=== PATIENT | male | born 1985 | race Caucasian/White ===

== ENCOUNTER 2021-08-06 15:36 | Emergency (ER) | payer OTHER, SELFPAY ==
[2021-08-06 15:37] VITALS: BP 126/103; PULSE 114; RESP 18; TEMP 35.4; O2SAT 91; BMI 48.5
[2021-08-06 15:42] VITALS: O2SAT 92
[2021-08-06 16:46] LABS: Bedside Glucose 141 mg/dL (70-110)
[2021-08-06 17:11] LABS: Absolute Neutrophil Count 2.7 X10^3/uL (2.0-7.7); Basophil# 0.03 X10^3/uL; Basophil% 0.5 % (0-1); Eosinophils% 1.7 % (0-5); Hemoglobin 17.1 g/dL (13.0-16.5); Lymphocyte % 40.3 % (19-41); Mean Corp Hgb Conc 32.3 g/dL (32-36); Mean Corpuscular Hgb 26.6 pg (27.0-32.0); Mean Corpuscular Volume 82.6 fL (80-94); Mean Platelet Vol. 10.6 fl (6.2-12.0); Monocyte# 0.66 X10^3/uL; Monocyte% 11.1 % (0-10); NRBC Flagged by Analyzer 0 % (0-5); Neutrophil # 2.74 X10^3/uL (2.7-7.7); Neutrophil % 46.1 % (47-70); Platelet Count 268 K/mm3 (150-450); RBC Distribution Width CV 13.5 % (11.6-14.6); RBC Distribution Width SD 40.1 fl (35.1-43.9); Red Blood Count 6.42 M/mm3 (4.6-6.2)
[2021-08-06 17:23] LABS: Anion Gap 7 (5-15); BUN 8 mg/dL (7-18); BUN/Creat Ratio 9.4 RATIO (10-20); Calcium,Total 9.1 mg/dL (8.5-10.1); Chloride 105 mmol/L (98-107); Creatinine, Serum 0.85 mg/dL (0.70-1.30); EST Glomerular Filtration Rate 108 mL/min (>60); Est Glom Filt Rate - Afr Amer 131 mL/min (>60); Estimated Creatinine Clearance 131.87 ml/min; Glucose 107 mg/dL (74-106); Potassium 4.7 mmol/L (3.5-5.1); Sodium Level 138 mmol/L (136-145)
--- NOTE | 2021-08-06 17:23 | EX.ED.DYSGE1 ---
HPI History of Present Illness Chief Complaint: Fatigue Detail of Chief Complaint: Shortness of breath, subjective fever, shaking chills Informant: patient Onset/Context/Timing Onset: Days (Onset of illness 9 days ago with shaking chills starting Tuesday.) Context: Sudden Onset Timing: Continuous (Majority of his symptoms been continuous and have gotten worse since onset) and Intermittent (The shaking chills have been intermittent) Quality: Fatigue, respiratory and GI symptoms with rigors Location: Generalized systemic infection Current Severity: Moderate Maximum Severity: Severe Worsened by: Nothing Relieved by: Nothing Associated Symptoms Associated Symptoms: Per HPI Narrative Narrative: Patient is a 36-year-old unvaccinated male with no significant medical history other than obesity per patient. He presents with symptoms of started 9 days ago. He initially had fatigue. Planes of nausea and then diarrhea. He is not noted blood or mucus in his diarrhea. He does report shortness of breath and nonproductive cough. He does report rhinorrhea, congestion postnasal drainage sore throat. He denies pain with breathing. He denies vomiting. He denies decreased urine output. He denies dysuria, frequency, urgency or hematuria. He has not noted a rash. He lives alone. He is not been exposed anyone ill to his knowledge. Prior similar symptoms: No Recent Illness/Hospitalization: No PFSH PFSH Medical History no medical history no medical history Home Medications naproxen 500 mg PO BID #20 tab 11/10/14 [Rx Last Taken Unknown] dexamethasone [Decadron] 6 mg PO DAILY #7 tab 08/06/21 [Rx Last Taken Unknown] Allergy/AdvReac Type Severity Reaction Status Date / Time No Known Allergies Allergy Verified 08/06/21 15:37 Surgical History no surgical history no surgical history Social History (Updated 08/06/21 @ 17:[address] Brett Hill MD) household members: none Smoking Status: Never smoker substance use type: does not use ROS ROS ED Constitutional Constitutional ED: Reports chills, fever(s), subjective and sweats; Denies weight loss Eyes Eyes: Reports other Details: He denies photophobia, neck pain or neck stiffness ; Denies blurry vision, change in vision or diplopia ENT ENT ED: Reports rhinorrhea and sore throat; Denies ear pain Cardiovascular Cardiovascular: Denies chest pain, orthopnea, palpitations, paroxysmal nocturnal dyspnea or racing heartbeat Respiratory/Chest Respiratory/Chest: Reports cough, dyspnea and dyspnea on exertion; Denies orthopnea, paroxysmal nocturnal dyspnea or sputum Gastrointestinal Gastrointestinal: Reports diarrhea, nausea and vomiting; Denies abdominal pain, constipation or melena Genitourinary Genitourinary ED: Denies dysuria, hematuria or urinary frequency Musculoskeletal Musculoskeletal: Denies arthralgias, myalgias or neck pain Integumentary Denies Abrasions or rash Neurologic Neurologic: Reports weakness; Denies headache(s) or paresthesias Psychiatric Psychiatric: Denies anxiety or depression Endocrine Endocrinology: Denies polydipsia, polyphagia or polyuria EXAM Physical Exam Const Vital Signs: 08/06/21 15:37 08/06/21 17:28 Temperature 95.8 F L Temperature Source Temporal Pulse Rate 114 H 87 Respiratory Rate 18 20 H Blood Pressure 126/103 H 126/92 H Blood Pressure Mean 110 103 Pulse Ox 91 96 Oxygen Delivery Method Room Air Room Air Positive well nourished, well developed and obese General Appearance ED: well developed, diaphoretic, pallor and other Patient appears pale. He has delayed capillary refill. He does have a lenticular rash noted. ; Negative for cyanotic or NAD Nutritional Appearance: obese HEENT Reports TM's clear and dry mucous membranes; Denies moist mucous membranes HEENT Narrative: There is an with clear drainage. Negative for trauma or tenderness Tympanic Membrane ED: Yes TM's clear Mouth ED: Yes dry mucous membranes Mouth: dry mucous membranes Eyes PERRL and EOMs intact bilaterally General Eye ED: Negative for pale conjunctiva or scleral icterus Neck no lymphadenopathy, supple and no JVD Chest Wall inspection of chest normal and palpation of chest normal Resp normal respiratory effort and clear to auscultation bilaterally Effort and Inspection: Negative for pain with movement Cardio regular rhythm, S1 normal heart sound, S2 normal heart sound and no murmurs Rate: tachycardic GI normal to inspection, nondistended, normoactive bowel sounds, non-tender and non-distended Palpation: soft Back/Spine no CVA tenderness Cervical Spine: Negative for cervical spine tenderness Thoracic Spine / Upper Back: Negative for thoracic spinal tenderness or paraspinal muscle tenderness Extremity normal to inspection Extremity Narrative: There is no asymmetry, swelling, discoloration, leg vein distention, palpable cords or tenderness along the distribution of the deep venous system. General Extremety ED: Negative for edema or tenderness General Extremity: Negative for edema Neuro oriented x3, CN's II-XII intact bilaterally and no sensory deficits noted Sensorium / Orientation: alert Motor Exam: strength 5/5 throughout Skin No no rashes or lesions noted and no wounds Skin Narrative: Vesicular rash with delayed cap refill General Skin Exam: pallor; Negative for jaundice Lesions: No lesion noted Rashes: rashes noted Trauma: Negative for abrasion Wounds: Negative for wounds noted MDM MDM MDM Narrative Medical decision making narrative: Suspect patient has Covid. Will obtain chest x-ray, appropriate blood work to assess for anemia, renal function, hypokalemia since he has diarrhea. IV fluids at 150 was ordered because of concern for Covid. Code test is positive. Lab Data Attestation: I reviewed the patient's lab results. Labs: Laboratory Results - last 24 hr 08/06/21 08/06/21 08/06/21 16:26 16:55 16:55 WBC 6.0 RBC 6.42 H Hgb 17.1 H Hct 53.0 MCV 82.6 MCH 26.6 L MCHC 32.3 RDW Std Deviation 40.1 RDW Coeff of Brandyn 13.5 Plt Count 268 MPV 10.6 Immature Gran % (Auto) 0.300 Neut % (Auto) 46.1 L Lymph % (Auto) 40.3 Sunflower % (Auto) 11.1 H Eos % (Auto) 1.7 Baso % (Auto) 0.5 Absolute Neuts (auto) 2.7 Absolute Lymphs (auto) 2.40 Nucleated RBC % 0 Sodium 138 Potassium 4.7 Chloride 105 Carbon Dioxide 26.0 Anion Gap 7 BUN 8 Creatinine 0.85 Estim Creat Clear Calc 131.87 Est GFR (MDRD) Af Amer 131 Est GFR (MDRD) Non-Af 108 BUN/Creatinine Ratio 9.4 L Glucose 107 H Lactic Acid Calcium 9.1 POC Glucose 141 H 08/06/21 17:23 WBC RBC Hgb Hct MCV MCH MCHC RDW Std Deviation RDW Coeff of Brandyn Plt Count MPV Immature Gran % (Auto) Neut % (Auto) Lymph % (Auto) Sunflower % (Auto) Eos % (Auto) Baso % (Auto) Absolute Neuts (auto) Absolute Lymphs (auto) Nucleated RBC % Sodium Potassium Chloride Carbon Dioxide Anion Gap BUN Creatinine Estim Creat Clear Calc Est GFR (MDRD) Af Amer Est GFR (MDRD) Non-Af BUN/Creatinine Ratio Glucose Lactic Acid 1.4 Calcium POC Glucose Radiography Chest X-Ray - ED: 1 View, Read by ED Physician (X-ray interpreted by me at 1749. Haziness mid right lower lung field may represent pneumonia. Patient Covid test was positive.), Normal, Heart, Mediastinum and Bony Structures Diagnostic Testing: Clinical Impression(s) from Imaging Studies Chest X-Ray 08/06/21 17:35 IMPRESSION: Right lung pneumonia. Electronically Signed: Michael Verdin MD at 17:52 EST , Service support , Discharge Plan Triage Chief Complaint: Fatigue Other Complaint: Shortness of Breath ED Provider: Brett Hill Dx/Rx/DC Orders Clinical Impression: Pneumonia due to 2019-nCoV Instructions: Coronavirus Disease 2019 (COVID-19): Caring for Yourself or Others Prescriptions: New dexamethasone [Decadron] 6 mg tablet 6 mg PO DAILY Qty: 7 RF: 0 No Action naproxen 500 MG tablet 500 mg PO BID Qty: 20 RF: 0 Primary Care Provider: Care Physician,No Primary Referrals: Beny Cespedes MD [STAFF PHYSICIAN] - 10-14 Days if not better Care Physician,No Primary [Primary Care Provider] - Disposition Disposition: Acute Care Hospital
[2021-08-06 17:28] VITALS: BP 126/92; PULSE 87; RESP 16; RESP 20; O2SAT 95; O2SAT 96
--- NOTE | 2021-08-06 17:35 | RAD_ITS ---
EXAM: XR CHEST, 1 VIEW CLINICAL INDICATION: Shortness of breath, dyspnea, malaise TECHNIQUE: Frontal view of the chest. This report was created using [employer] report generation technology. COMPARISON: None. FINDINGS: LUNGS AND PLEURAL SPACES: Right lung pneumonia. No pneumothorax. No effusion. HEART: Unremarkable. Cardiac silhouette not enlarged. MEDIASTINUM: Central airways and mediastinal contour are unremarkable. BONES/JOINTS: Unremarkable. SOFT TISSUES: Unremarkable. RAD/Chest 1 View (Portable) IMPRESSION: Right lung pneumonia. Electronically Signed: Michael Verdin MD at 17:52 EST , Service support ,
[2021-08-06 18:01] LABS: Lactic Acid 1.4 mmol/L (0.4-1.9)
[2021-08-06 18:13] VITALS: BP 132/89; PULSE 90; RESP 15
== END 2021-08-06 18:34 | disposition home or self-care (01) ==
LOC: ED 18:30
PROVIDERS: Emergency Provider Emergency Medicine
DX: U07.1 COVID-19 (principal); J12.82 Pneumonia due to coronavirus disease 2019; E66.9 Obesity, unspecified
CPT/HCPCS: 71045; 80048; 82962; 83605; 85025; 87040; 87426; 94760; 99284